=== PATIENT | male | born 1955 | race Caucasian/White ===

== ENCOUNTER 2019-09-08 00:48 | Emergency (ER) | payer MEDICAID ==
[~2019-09-08] VITALS: Ht 175.3 cm; Wt 108.9 kg
--- NOTE | 2019-09-08 00:54 | NUR ---
[facility] TO ER BED 07
--- NOTE | 2019-09-08 01:01 | NUR ---
DR ADKINS AT BEDSIDE. PATIENT ORDERS RECIEVED. BLOOD DRAWN. PATIENT HOOKED UP TO MONITOR.
[2019-09-08 01:23] VITALS: BP 105/73
--- NOTE | 2019-09-08 01:30 | NUR ---
ASSESSMENT COMPLETED. PATIENT SUPINE IN BED. ON MONITOR. SEIZURE PADS IN PLACE. O2 NC 2L. BED LOW LOCKED WITH BILATERAL SIDE RAILS. BEAR HUGGER ON PATIENT. ASSESSMENT NOTE: BIBA WITH REPORTS OF BEING FOUND BY ALTERED AT HOME. 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 STATES PATIENT WAS MOVING SPASTICLY AND NOT RESPONSIVE. PATIENT PUPILS PINPOINT, RESPONSIVE TO PAIN WITH PURPOSFUL BUT SPASTIC MOVEMENT. NON-VERBAL. PATIENT SKIN COOL TO TOUCH, 2L NC. NARCAN GIVEN IN ROUTE WITH NO CHANGE IN STATUS. LUNGS CLEAR. ABD ROUND SOFT. SEPSIS PROTOCOL INITIATED. HX A-FIB, PACEMAKERAND HTN.
[2019-09-08] MEDS ORDERED: NACL 0.9% 0 ML IV STA (01:39)
[2019-09-08] MEDS ORDERED: BLOOD GLUCOSE MONITORING 1 DEV DEV FS STA (01:39)
--- NOTE | 2019-09-08 02:31 | NUR ---
attempted to draw an abg but unable to get it. pt is cold and has poor perfusion. Dr. pierre notified.
[2019-09-08 02:36] LABS: BASOPHILS # (AUTO) 0.1 K/uL (0.00-0.22); BASOPHILS % (AUTO) 0.7 % (0.0-2.0); EOSINOPHILS # (AUTO) 0.1 K/uL (0-0.4); EOSINOPHILS % (AUTO) 0.7 % (0.0-4.0); HEMATOCRIT 42.1 % (36-52); HEMOGLOBIN 13.6 g/dL (12.0-18.0); LYMPHOCYTES # (AUTO) 1.8 K/uL (2.0-11.5); LYMPHOCYTES % (AUTO) 20.1 % (20.5-51.1); MEAN CORPUSCULAR HEMOGLOBIN 31 pg (27-31); MEAN CORPUSCULAR HGB CONC 32 g/dL (33-37); MEAN CORPUSCULAR VOLUME 96.7 fL (80-94); MONOCYTES # (AUTO) 0.6 K/uL (0.8-1.0); MONOCYTES % (AUTO) 6.6 % (1.7-9.3); NEUTROPHILS # (AUTO) 6.3 K/uL (1.8-7.7); NEUTROPHILS % (AUTO) 71.9 % (42.2-75.2); PLATELET COUNT (AUTO) 196 K/uL (140-450); RED BLOOD CELL COUNT(AUTO) 4.35 MIL/uL (4.20-6.10); RED CELL DISTRIBUTION WIDTH 19.7 % (11.6-13.7); WHITE BLOOD COUNT (AUTO) 8.8 K/uL (4.8-10.8)
--- NOTE | 2019-09-08 02:40 | NUR ---
RUBIO CATH PLACED PER DR. ADKINS. PATIENT TOLERATED WELL.
[2019-09-08 02:45] LABS: ANION GAP 16.2 (8-16); CARBON DIOXIDE 21.8 mmol/L (21-32); CREATININE 1.7 mg/dL (0.7-1.3)
[2019-09-08 02:52] LABS: ALBUMIN 3.3 g/dL (3.4-5.0); TOTAL BILIRUBIN 2.3 mg/dL (0.0-1.0)
[2019-09-08 03:09] LABS: APPEARANCE,URINE CLEAR (CLEAR); BILIRUBIN,URINE 1+ (NEGATIVE); BLOOD, URINE TRACE-I (NEGATIVE); COLOR,URINE YELLOW (YELLOW); LEUKOCYTE ESTERASE ,URINE NEGATIVE (NEGATIVE); NITRITE, URINE NEGATIVE (NEGATIVE); PH,URINE 5.5 (5.0-9.0); UGLUCOSE NEGATIVE (NEGATIVE)
[2019-09-08 03:14] LABS: BARBITURATE, URINE NEG. ng/ml (NEG <=200); BENZODIAZEPINE, URINE NEG. ng/mL (NEG <=200); CANNABINOID, URINE NEG. ng/mL (NEG <=50); COCAINE, URINE NEG. ng/mL (NEG <=300); OPIATE, URINE NEG. ng/mL (NEG <=2000); PHENCYCLIDINE SCREEN,URINE NEG. ng/mL (NEG <=25)
[2019-09-08] MEDS ORDERED: AZITHROMYCIN 500 MG in DEXTROSE 5% 250 ML IV ONE (03:20)
[2019-09-08] MEDS ORDERED: NACL 0.9% 1,000 ML IV ONE ×2 (03:20)
--- NOTE | 2019-09-08 03:30 | NUR ---
PATIENT RESPONSIVE TO PAIN, MOVING ARMS AND LEGS SPARATICALLY.
[2019-09-08 03:31] LABS: WBC,URINE 0-5 /HPF (0-5)
[2019-09-08 03:32] LABS: HYALINE CASTS, URINE 30-50 /LPF (None Seen)
--- NOTE | 2019-09-08 04:00 | NUR ---
PATIETN SUPINE IN BED. 4L O2 THROUGH SIMPLE MASK DUE TO PATIENT BREATHING THROUGH MOUTH AND O2 DROPPING TO 89%. DR ADKINS AWARE. O2 SATURATION IMPROVED TO 98% ON MASK.
[2019-09-08] MEDS ORDERED: AZITHROMYCIN 500 MG INJ VIAL IV ONE (04:18)
[2019-09-08] MEDS ORDERED: cefTRIAXone 1,000 MG VIAL ONE (04:18)
[2019-09-08] MEDS ORDERED: LORazepam 2 MG/ML VIAL IVP ONE (05:00)
[2019-09-08] MEDS ORDERED: diphenhydrAMINE 50 MG/ML VIAL IVP ONE (05:00)
--- NOTE | 2019-09-08 05:00 | NUR ---
PATIENT LACTIC ACID REDRAWN SENT TO LAB.
[2019-09-08 05:42] VITALS: BP 109/22
[2019-09-08] MEDS ORDERED: DIGO0.122 PO (05:44)
[2019-09-08] MEDS ORDERED: TAMS0.4C96 PO (05:44)
[2019-09-08] MEDS ORDERED: SPIR50TA PO (05:44)
[2019-09-08] MEDS ORDERED: FURO-570 PO (05:44)
[2019-09-08] MEDS ORDERED: CARV12.5 PO (05:44)
[2019-09-08] MEDS ORDERED: POTA10TE30 PO (05:44)
[2019-09-08] MEDS ORDERED: VALS80TA2 PO (05:44)
[2019-09-08] MEDS ORDERED: ATOR20TA PO (05:44)
--- NOTE | 2019-09-08 05:50 | NUR ---
PATIENT GRUNTING WITH AUDIBLE EXPIRATORY WHEEZE. DR. ADKINS MADE AWARE
[2019-09-08] MEDS ORDERED: ALBUTEROL 0.083% 2.5 MG/3 ML NEBU INH ONE (05:55)
--- NOTE | 2019-09-08 05:59 | NUR ---
RT AT BEDSIDE.
--- NOTE | 2019-09-08 06:03 | NUR ---
NASAL TRUMPET PLACED AT THIS TIME PER DR. ADKINS.
[2019-09-08] MEDS ORDERED: NACL 0.9% 1,000 ML IV SCH (06:16)
[2019-09-08] MEDS ORDERED: MORPHINE SULFATE 2 MG/ML SYR IVP PRN (06:20)
[2019-09-08] MEDS ORDERED: ONDANSETRON 4 MG/2 ML VIAL IM/IVP PRN (06:20)
[2019-09-08] MEDS ORDERED: ACETAMINOPHEN 325 MG TAB PO PRN (06:20)
[2019-09-08] MEDS ORDERED: LORazepam 2 MG/ML VIAL IM/IVP PRN (06:20)
--- NOTE | 2019-09-08 06:20 | NUR ---
PATIENT HAS ABD BREATHING AND GRUNTING. ERMD AWARE. WILL PROCEDE WITH RAPID INTUBATION ORDERED.
[2019-09-08] MEDS ORDERED: INTUBATION KIT MC ONE (06:23)
--- NOTE | 2019-09-08 06:45 | NUR ---
CALLED TO ER 7 TO INTUBATED PT, DR. VANESSA AT BESIDE TO INTUBATE PT, THEN INTUBATED PT AT 0650 WITH 7.0 AT 24 CM PT WAS BEING BAGGED WITH 100% FIO2 AND AT 0651 CODE WAS CALLED CPR AND ACLS DRUGS GIVEN AT 0714 DR. ADKINS ENDED CODE
[2019-09-08] MEDS ORDERED: SODIUM BICARBONATE 8.4% PFS 50 MEQ/50 ML SYR IVP ONE (06:51)
[2019-09-08] MEDS ORDERED: CODE BLUE PARTICIPANT 1 EA MISC MC ONE (06:51)
[2019-09-08] MEDS ORDERED: EPINEPHrine PFS 0.1 MG/ML SYR IVP ONE (06:51)
--- NOTE | 2019-09-08 06:51 | NUR ---
PT WAS INTUBATED, PT IN FULL ARREST, NO PULSE. ERMD, RNS, RT, EMT, AVIATION SAFETY EQUIPMENT TECHNICIAN AND RESIDENTS AT BEDSIDE ACLS PROTOCOL. FIRST ROUND OF EPINEPHRINE GIVEN. SODIUM BICARB WAS GIVEN. RESUME COMPRESSIONS BY EMT.
[2019-09-08] MEDS ORDERED: NALOXONE PFS 2 MG/2 ML SYR ONE (07:00)
--- NOTE | 2019-09-08 07:00 | NUR ---
STAFF CONTINUES ACLS PROTCOL, CPR, 3 ROUNDS OF EPINEPHRINE WAS GIVEN. NARCAN WAS GIVEN. NO PULSE. COMPRESSIONS CONTINUE BY ER STAFF. ERMD AND RESIDENTS AT BEDSIDE.
[2019-09-08] MEDS ORDERED: NOREPINEPHRINE 4 MG/4 ML VIAL IV ONE (07:04)
--- NOTE | 2019-09-08 07:07 | NUR ---
ACLS PROTOCOL CONTINUED, CPR. LEVOPHED WAS GIVEN. SEE CODE BLUE SHEET FOR MORE INFORMATION.
--- NOTE | 2019-09-08 07:12 | NUR ---
CPR CONTINUED, NO PULSE. STAFF AT BEDSIDE. COMPRESSIONS RESUMED. SEE CODE BLUE SHEET FOR FURTHER INFORMATION.
--- NOTE | 2019-09-08 07:14 | NUR ---
CPR DISCONTINUED AT THIS TIME. ERMD CALLED TIME OF 0714.
--- NOTE | 2019-09-08 07:20 | NUR ---
UNABLE TO CONTACT FAMILY. NO NEXT OF KIN DOCUMENTED OR PHONE NUMBER FOR CONTACT.
--- NOTE | 2019-09-08 07:30 | NUR ---
GAVE REPORT TO ARIK JARAMILLO
--- NOTE | 2019-09-08 07:36 | NUR ---
CALLED END USER SUPPORT SPECIALIST, SPOKE TO GINGER, GAVE PT INFORMATION. END USER SUPPORT SPECIALIST WILL CALL BACK.
--- NOTE | 2019-09-08 07:41 | NUR ---
SPOKE TO [facility], STATED THEY WOULD CALL BACK. REF# [id number]
[2019-09-08] MEDS ORDERED: SUCCINYLCHOLINE CHLORIDE 200 MG/10 ML VIAL IVP ONE (07:50)
[2019-09-08] MEDS ORDERED: ETOMIDATE 20 MG/10 ML VIAL IVP ONE (07:50)
[2019-09-08] MEDS ORDERED: MIDAZOLAM 2 MG/2 ML VIAL IVP ONE (07:50)
--- NOTE | 2019-09-08 10:09 | NUR ---
Called stacker driver to follow up on previous call made to stacker driver. Dispatcher states the call is still pending and stacker driver has not looked at it yet but she will advise the stacker driver that I called. Will continue to follow up.
--- NOTE | 2019-09-08 10:10 | NUR ---
Pt's girlfriend Priyanka called and was asked to come down to hospital. [phone]
--- NOTE | 2019-09-08 11:17 | NUR ---
DR GERMAN SPOKE TO FAMILY IN CONFERENCE ROOM. FAMILY IN CONFERENCE ROOM AWAITING FOR MORE FAMILY MEMBERS TO COME
--- NOTE | 2019-09-08 11:21 | NUR ---
SPOKE TO BARRETT FROM [facility] [employer] [employer]. PER BARRETT, ONE MORE CALL AHEAD OF OURS. WILL LET [employer] KNOW.
--- NOTE | 2019-09-08 12:07 | NUR ---
SPOKE TO [facility], BUSINESS APPLICATIONS SPECIALIST JOHN. PER JOHN TO RELEASE THE BODY APPROPIATELY, [facility] WILL NOT PURSUE PATIENT FOR ORGAN DONATION BASED ON INFORMATION PROVIDED. CHARGE NURSE EUGENE NOTIFIED.
--- NOTE | 2019-09-08 13:14 | NUR ---
SPOKE TO HOME RESTORATION SERVICE SUPERVISOR DEPUTY MCHUGH. PER DEPUTY MCHUGH, CASE IS HOME RESTORATION SERVICE SUPERVISOR HOLD. DEPUTY MCHUGH SPOKE TO GIRLFRIEND OF PT VIA PHONE. NAME OF GIRLFRIEND ALTAF MCCARTNEY. DEPUTY MCHUGH TRANSFERRED TO LAB FOR FURTHER QUESTIONS ON LABORATORY. CHARGE NURSE EUGENE NOTIFIED AND AWARE OF HOME RESTORATION SERVICE SUPERVISOR CALL. CASE #[id number]
--- NOTE | 2019-09-08 13:23 | NUR ---
REPORT GIVEN TO ELLA DOMINGUEZ FOR CONTINUITY OF CARE
--- NOTE | 2019-09-08 14:20 | NUR ---
Contacted conduit mechanic's office, spoke to Cici, states "they are working on the call and will contact you shortly."
--- NOTE | 2019-09-08 14:30 | NUR ---
Can Sibley called and I asked if patient would be picked up by cloth sander and he said no that pt had to be taken to morgue. He was advised we don't have a morgue so then he said family had to pick a mortuary to cotton picker operator the patient and he would still continue his investigation. Family made aware, [facility] [place]
--- NOTE | 2019-09-08 14:45 | NUR ---
Pt's ex- contact info is Autumn Cruz
--- NOTE | 2019-09-08 15:56 | NUR ---
ETA for 1-[address] [facility].
--- NOTE | 2019-09-08 16:15 | NUR ---
[facility] representatives at bedside. Daughter Glo called to speak with mortuary. They were escorted to conference room for privacy.
--- NOTE | 2019-09-08 16:16 | NUR ---
[facility]
--- NOTE | 2019-09-08 16:30 | NUR ---
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
--- NOTE | 2019-09-08 16:31 | NUR ---
[facility] representatives gave belongings to family. A pair of pants and bag of medications.
--- NOTE | 2019-09-08 16:45 | NUR ---
Daughter signed release of patient. Pt taken by [facility] staff.
--- NOTE | 2019-09-08 16:52 | NUR ---
Pt left facility to [facility].
[2019-09-09] MEDS ORDERED: AZITHROMYCIN 250 MG in DEXTROSE 5% 250 ML IV SCH (09:00)
--- NOTE | 2019-09-10 11:10 | NUR ---
Late entry. Confirmed with RN that 0.9 NS IV completed at 0350
--- NOTE | 2019-09-10 11:11 | NUR ---
Late entry. Confirmed with RN that Zithromax IV completed at 0530
== END 2019-09-08 07:14 | disposition expired ==
LOC: MED 00:48
DX: R41.82 Altered mental status, unspecified (principal); F15.10 Other stimulant abuse, uncomplicated; J18.9 Pneumonia, unspecified organism; I46.9 Cardiac arrest, cause unspecified; Z79.899 Other long term (current) drug therapy
CPT/HCPCS: 31500; 36415; 70450; 71045; 80053; 80305; 81001; 83605; 85025; 85610; 85730; 87040; 87086; 92950; 93005; 94640; 96361; 96365; 96367; 96375; 99285; J0171; J0330; J0456; J0696; J1200; J2060; J2310; J3490; J7030; J7613; Q0092